=== PATIENT | male | born 1980 | race Caucasian/White ===

== ENCOUNTER 2024-12-13 02:30 | Emergency (ER) | payer BC, SELFPAY ==
[2024-12-13 02:38] VITALS: BMI 28.0
[2024-12-13 02:45] VITALS: BP 157/90
--- NOTE | 2024-12-13 02:55 | PTCARENOTE ---
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
[2024-12-13 03:00] VITALS: BP 144/84
[2024-12-13 03:08] LABS: % Basophils 0.5 % (0-2); % Eosinophils 2.9 % (0-6); % Immature Granulocytes 1.4 % (0-0.5); % Lymphocytes 9.2 % (20.5-51.1); Absolute Basophils 0.1 10^3/uL (0-0.2); Absolute Eosinophils 0.6 10^3/uL (0-0.7); Absolute Immature Granulocytes 0.3 10^3/uL (0-0.05); Absolute Lymphocytes 1.8 10^3/uL (1.2-3.4); Absolute Monocytes 1.6 10^3/uL (0.1-0.6); Absolute Neutrophils 15.4 10^3/uL (1.4-6.5); Hematocrit 41.6 % (39.0-52.0); Hemoglobin 13.8 g/dL (13.0-18.0); Mean Corp Hgb Conc. 33.2 g/dL (33.0-37.0); Mean Corpuscular Hgb 27.2 pg (27.0-31.0); Mean Corpuscular Volume 82.1 fL (80.0-94.0); Mean Platelet Volume 8.1 fL (7.4-10.4); Nucleated Red Blood Cells % 0 % (-); Platelet Count 614 10^3/uL (130-400); Red Blood Cell Count 5.07 10^6/uL (4.70-6.10); Red Cell Dist. Width 15.4 % (11.5-14.5); White Blood Cell Count 19.7 10^3/uL (4.8-10.8)
--- NOTE | 2024-12-13 03:23 | EDRN ---
Pt. told this RN, 'I am clean and sober for 8 years'. When RN asked pt. what he was sober from he continuously answered, 'everything. alcohol, drugs everything.' RN asked pt. to clarify, again, pt. states, 'everything'.
[2024-12-13 03:30] LABS: ALT (SGPT) 96 U/L (0-50); AST (SGOT) 39 U/L (17-59); Albumin 4.1 g/dl (3.5-5.0); Alkaline Phosphatase 94 U/L (38-126); Blood Urea Nitrogen 17 mg/dl (9-20); Calcium 9.2 mg/dl (8.4-10.2); Carbon Dioxide 26 mmol/L (22-30); Chloride 102 mmol/L (98-107); Estimated Creatinine Clearance 91 ml/min; Glucose 122 mg/dl (70-99); Potassium 4.2 mmol/L (3.5-5.1); Sodium 139 mmol/L (135-145); Total Bilirubin 0.5 mg/dl (0.2-1.3); Total Protein 7.2 g/dl (6.3-8.2); eGFR > 60.00
[2024-12-13 03:42] LABS: Troponin I 0.016 ng/ml
[2024-12-13 04:00] VITALS: BP 141/88
--- NOTE | 2024-12-13 05:05 | ED.GENMED ---
History of Present Illness
<Emma Arthur DO - Last Filed: 12/13/24 06:28>
General
Chief Complaint: Chest Pain
Time Seen by Provider: 12/13/24 04:24
<GRUPO Dorman - Last Filed: 12/13/24 05:50>
General
Source: patient
Exam Limitations: none
History of Present Illness
History of Present Illness:
44 y/o male pt with a PMH of substance abuse, sober for 8 years, otherwise no significant PMH, presenting to ED c/o sharp chest pain while sleeping. Pt states pain was sharp, severe enough to wake him up. Pain is constant, rates pain a 8/10 when it
started, states now it is a 4/10. Pain improved on its own, sleeping on his side made it worse. States he is having some SOB and that the pain is worse with deep inspiration. Denies feeling anything like it before. Denies any fever, headaches,
N/V/D, acid reflux. Denies any back pain, shoulder pain. Denies calf redness, warmth, or tenderness. Former smoker, denies ETOH use.
Past History
<GRUPO Dorman - Last Filed: 12/13/24 05:50>
Past History
ED Past Medical History: None
Review of Systems
<GRUPO Dorman - Last Filed: 12/13/24 05:50>
Review of Systems
Constitutional: Reports no symptoms
EENT: Reports no symptoms
Respiratory: Reports other (SOB)
Cardiac: Reports chest pain
ABD/GI: Reports no symptoms
Musculoskeletal: Reports no symptoms
Skin: Reports no symptoms
Phy Exam
<GRUPO Dorman - Last Filed: 12/13/24 05:50>
General Physical Exam
General Presentation: well appearing and no apparent distress
General age: appears stated age
General Skin: warm
General Habitus: normal
General Mental: alert
General Hydration: appears well hydrated
ENT Exam
ENT Exam: neck supple and normocephalic
Cardiovascular Exam
Cardiovascular Exam: regular rate/rhythm, no gallop, no JVD, no murmur and normal peripheral pulses
Heart Sounds: normal
Pulmonary Exam
Pulmonary Exam: lungs clear, no respiratory distress, no rales, chest non tender, no crackles and no wheezing
Cough: no cough
Gastrointestinal Exam
Gastrointestinal Exam: normal bowel sounds, non tender, no pulsatile mass and surgical scar
Abdominal Scars: right lower quadrant
Auscultation of Abdomen: normal
Musculoskeletal Exam
Musculoskeletal Exam: no edema (bilateral calves)
Scores
<Emma Arthur DO - Last Filed: 12/13/24 06:28>
Heart Score for Chest Pain Patients
Heart Score for Chest Pain Patients: 0
Heart Score Risk: 2.5% MACE over next 6 weeks
<GRUPO Dorman - Last Filed: 12/13/24 05:50>
Heart Score for Chest Pain Patients
STEMI patient?: No
History: Slightly or Non-Suspicious
ECG: Normal
Age: </= 45 years
Risk Factors: No Risk Factors
Troponin: </= Normal Limit
Heart Score for Chest Pain Patients: 0
Heart Score Risk: 2.5% MACE over next 6 weeks
Course
<Emma Arthur DO - Last Filed: 12/13/24 06:28>
Orders/Labs/Results
Orders:
Orders
12/13/24 02:31
Electrocardiogram (*1) Urgent
Reason for Study: Chest Pain
EKG- Treatment ONCE
12/13/24 02:46
Complete Blood Count/With Diff Urgent
Comprehensive Metabolic Panel Urgent
Troponin I Urgent
12/13/24 03:25
CR Chest - 2 Views Urgent
Comment:
Reason For Exam: chest pain
12/13/24 04:41
Electrocardiogram (*1) Urgent
Reason for Study: Chest Pain
EKG- Treatment ONCE
12/13/24 04:48
Troponin I Urgent
12/13/24 04:51
D-Dimer Urgent
12/13/24 04:56
Aspirin Chewable [Low Strength Aspirin] 324 mg PO NOW STA
Pantoprazole [Protonix IV] 40 mg IV NOW STA
12/13/24 05:51
Mag Hydrox/Al Hydrox/Simeth [Maalox] 30 ml Phenobarb/Hyoscy/Atropine/Scop [] 10 ml Viscous Lidocaine 2% [Xylocaine Viscous Cup] 10 ml PO NOW
12/13/24 05:55
Mag Hydrox/Al Hydrox/Simeth [Maalox] 30 ml .ROUTE .STK-MED ONE
Phenobarb/Hyoscy/Atropine/Scop [] 10 ml .ROUTE .STK-MED ONE
Viscous Lidocaine 2% [Xylocaine Viscous Cup] 15 ml .ROUTE .STK-MED ONE
Abnormal Lab Results
12/13/24
02:46
WBC 19.7 H 10^3/uL
(4.8-10.8)
RDW 15.4 H %
(11.5-14.5)
Plt Count 614 H 10^3/uL
(130-400)
Abs Immat Gran (auto) 0.3 H 10^3/uL
(0-0.05)
Absolute Neuts (auto) 15.4 H 10^3/uL
(1.4-6.5)
Absolute Monos (auto) 1.6 H 10^3/uL
(0.1-0.6)
Immature Gran % 1.4 H %
(0-0.5)
Neutrophils % 78.0 H %
(42.2-75.2)
Lymphocytes % 9.2 L %
(20.5-51.1)
Glucose 122 H mg/dl
(70-99)
ALT 96 H U/L
(0-50)
12/13/24 02:46
12/13/24 02:46
Vital Signs
Initial and Last Documented VS:
Initial Vital Signs
BP
157/90
12/13/24 02:45
Last Documented Vital Signs
Pulse Resp BP Pulse Ox
78 16 119/89 95
12/13/24 06:15 12/13/24 06:00 12/13/24 06:00 12/13/24 06:15
<GRUPO Dorman - Last Filed: 12/13/24 05:50>
Orders/Labs/Results
Orders:
Orders
12/13/24 02:31
Electrocardiogram (*1) Urgent
Reason for Study: Chest Pain
EKG- Treatment ONCE
12/13/24 02:46
Complete Blood Count/With Diff Urgent
Comprehensive Metabolic Panel Urgent
Troponin I Urgent
12/13/24 03:25
CR Chest - 2 Views Urgent
Comment:
Reason For Exam: chest pain
12/13/24 04:41
Electrocardiogram (*1) Urgent
Reason for Study: Chest Pain
EKG- Treatment ONCE
12/13/24 04:48
Troponin I Urgent
12/13/24 04:51
D-Dimer Urgent
12/13/24 04:56
Aspirin Chewable [Low Strength Aspirin] 324 mg PO NOW STA
Pantoprazole [Protonix IV] 40 mg IV NOW STA
12/13/24 05:51
Mag Hydrox/Al Hydrox/Simeth [Maalox] 30 ml Phenobarb/Hyoscy/Atropine/Scop [] 10 ml Viscous Lidocaine 2% [Xylocaine Viscous Cup] 10 ml PO NOW
12/13/24 05:55
Mag Hydrox/Al Hydrox/Simeth [Maalox] 30 ml .ROUTE .STK-MED ONE
Phenobarb/Hyoscy/Atropine/Scop [] 10 ml .ROUTE .STK-MED ONE
Viscous Lidocaine 2% [Xylocaine Viscous Cup] 15 ml .ROUTE .STK-MED ONE
Abnormal Lab Results
12/13/24
02:46
WBC 19.7 H 10^3/uL
(4.8-10.8)
RDW 15.4 H %
(11.5-14.5)
Plt Count 614 H 10^3/uL
(130-400)
Abs Immat Gran (auto) 0.3 H 10^3/uL
(0-0.05)
Absolute Neuts (auto) 15.4 H 10^3/uL
(1.4-6.5)
Absolute Monos (auto) 1.6 H 10^3/uL
(0.1-0.6)
Immature Gran % 1.4 H %
(0-0.5)
Neutrophils % 78.0 H %
(42.2-75.2)
Lymphocytes % 9.2 L %
(20.5-51.1)
Glucose 122 H mg/dl
(70-99)
ALT 96 H U/L
(0-50)
12/13/24 02:46
12/13/24 02:46
Vital Signs
Initial and Last Documented VS:
Initial Vital Signs
BP
157/90
12/13/24 02:45
Last Documented Vital Signs
Pulse Resp BP Pulse Ox
78 16 119/89 95
12/13/24 06:15 12/13/24 06:00 12/13/24 06:00 12/13/24 06:15
<GRUPO Dorman - Last Filed: 12/13/24 05:50>
*Critical Care Note
Total Time (30-74mins, 75-104mins- exclusive of procedures): Not Applicable
ED Attending Note
<Emma Arthur DO - Last Filed: 12/13/24 06:28>
ED Attending Note
Patient seen and examined by attending physician: Yes
I performed the substantive portion of visit, reviewed & personally made and approve the management plan that is documented in note by myself or LAURA.: Yes
ED Attending Note:
This is a 44-year-old gentleman who has remote history of IV drug abuse, has been clean and sober for 8 years. Other than this no past medical history, he takes no medicines on a daily basis. Prior smoker. No alcohol use.
No significant family history including no family history of CAD nor thromboembolism.
He presents with lower substernal chest pain that woke him from sleep around 1 AM accompanied with shortness of breath, increased pain with deep breath, mild diaphoresis but no nausea nor vomiting. Took a dose of ibuprofen without relief. He
denies radiation of the pain, no neck nor back pain, no abdominal pain. No history of similar episodes in the past.
He does admit to moderate dietary indiscretion yesterday consuming a fair amount of carbs which is unlike him. He also eats protein brownies throughout the the night which is usual occurrence.
GENERAL: Alert , in no apparent distress
EYE: anicteric
NECK: Supple, nontender, no meningismus, no significant adenopathy.
ENT: posterior pharynx is clear, oral mucosa is moist. TM clear b/l, nares patent.
CARDIAC: Regular rate and rhythm. no murmur. No rub. No palpable chest wall tenderness.
LUNGS: Clear breath sounds bilaterally, no acute respiratory distress, no wheezes/rales/rhonchi
ABDOMEN: Soft, nondistended, without focal tenderness, no r/g, no cvat. normoactive BS.
NEUROLOGICAL: Alert and oriented x3, no focal neuro deficits. Gait is mccoy and steady.
SKIN: Warm and dry, normal color, skin intact. No rash.
MUSCULOSKELETAL: No C/C/E. peripheral pulses are full and equal b/l. No palpable tenderness.
PSYCH: Normal and appropriate interaction.
Concern for ACS, GERD, pneumonia. As abdomen is soft without appreciable tenderness, biliary colic, pancreatitis or other intra-abdominal process are unlikely. Chest pain is worse with deep breath, pleurisy is also consideration, PE is less likely.
Thus far EKG is unremarkable.
Labs show moderately elevated white blood cell count of 19.7. Mildly elevated ALT, all other LFTs within normal limits. Troponin is normal.
Chest x-ray is unremarkable.
Will recheck troponin, EKG and will check D-dimer.
05:50
Troponin (-)
D-dimer normal
Will trial GI cocktail
06:25
Patient sleeps when undisturbed.
Chest pain markedly improved. 'It only hurts a little when I take a deep breath'
I highly suspect acute GERD/esophagitis.
Will treat with a short course of Protonix.
Recommend bland diet.
Prompt follow-up with PCP for recheck.
-
Portions of this chart may have been created with voice recognition software.� Occasional wrong word or��sound alike� substitutions may have occurred due to the inherent limitations of voice recognition software.
Discharge Plan
Departure
Patient Disposition: Home (Routine Discharge)
Date of Disposition: 12/13/24
Time of Disposition: 06:25
Patient with high blood pressure during this ER visit?: No
Condition: Good
Discharge Problem:
Acute GERD w esophagitis
Instructions: Acid Reflux and GERD in Adults (DC)
Prescriptions:
New
pantoprazole [Protonix] 40 mg tablet,delayed release (DR/EC)
40 mg PO DAILY Qty: 30 0RF
Referrals:
[facility] [Provider Group] - Call in 1-3 days for appt
NONE,* [Family Provider] -
Activity Restrictions/Additional Instructions:
Maintain a bland diet avoiding chocolate, caffeine, spicy or fried foods.
You have been prescribed Protonix to take once daily over the next 2 weeks.
Follow-up with your primary care physician for recheck. If you do not have a primary care physician, you have been provided with the number for our family practice residency clinic for follow-up.
Interventions
Interventions:
*Risk Screen - Suicide Last Done: 12/13/24 02:50
*General Assessment Last Done: 12/13/24 02:47
*Neglect/Abuse Screening Last Done: 12/13/24 02:49
*ED COVID-19 Vaccine History Last Done: 12/13/24 02:49
ED- Cardiac Assessment Last Done: 12/13/24 02:41
Discharge Date and Time
Print Language: SLOVAK
[2024-12-13 05:08] VITALS: BP 125/83
[2024-12-13] MEDS: PROTONIX IV 40 MG IV (05:13)
[2024-12-13] MEDS: LOW STRENGTH ASPIRIN 324 MG PO (05:13)
[2024-12-13 05:34] LABS: D-Dimer 0.35 ug/mlFEU (0.00-0.50)
[2024-12-13 05:40] LABS: Troponin I < 0.012 ng/ml
[2024-12-13] MEDS: MAALOX 50 PO (05:59)
[2024-12-13 06:00] VITALS: BP 119/89
== END 2024-12-13 06:45 | disposition home or self-care (01) ==
LOC: EMR 02:30
PROVIDERS: EMERGENCY PHYSICIAN Emergency Medicine
DX: R07.89 Other chest pain (principal); F19.10 Other psychoactive substance abuse, uncomplicated; K21.00 Gastro-esophageal reflux disease with esophagitis, without bleeding; Z87.891 Personal history of nicotine dependence
CPT/HCPCS: 99283; 96374; 71046; 80053; 84484; 85025; 85379; 93005